=== PATIENT | female | born 1980 | race Caucasian/White ===

== ENCOUNTER 2021-07-30 08:27 | Emergency (ER) | payer OTHER, SELFPAY ==
--- NOTE | ~2021-07-30 | XR_ITS ---
EXAMINATION: XR wrist LT min 3V DATE: 07/30/2021 09:02 INDICATION: Generalized radiocarpal pain at the left wrist. TECHNIQUE: Posteroanterior, ulnar deviation, oblique, and lateral views of the left wrist were obtain ed. COMPARISON: none FINDINGS: Alignment is normal. No fracture. Bone islands at the head of the fifth metacarpal. And base of the f irst proximal phalanx. 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 Soft tissues are unrem arkable. IMPRESSION: 1. No acute osseous abnormality. Reviewed, dictated and finalized at location A. F CONSULTANT
[2021-07-30 08:34] VITALS: BP 133/83; PULSE 80; RESP 16; TEMP 36.6; O2SAT 99
--- NOTE | 2021-07-30 09:01 | ED.EXTPRO ---
HPI - Extremity Problem General Chief complaint: Extremity Problem,Nontraumatic Stated complaint: Hand/Back Pain Time Seen by Provider: 07/30/21 09:01 Source: patient Mode of arrival: ambulatory Limitations: no limitations History of Present Illness HPI Narrative: 40-year-old female presented for complaint of left wrist pain for 3 days and pain across the low back for over 3 weeks. She endorses history of RA dx 6 years and feels this is a flare. she was seen by handkerchief folder over 2 years ago and has not had any injections since. She did see her PCP last week and was given a steroid for the back pain which provided minimal relief. She also takes ibuprofen as needed, using ice and pain cream. She denies numbness, tingling, weakness to the lower extremities or to the hand. Endorses mild swelling. Denies any injury. Related Data Home Medications Medication Instructions Recorded Confirmed bupropion HCl 300 mg PO DAILY 07/30/21 07/30/21 hydrochlorothiazide 12.5 mg PO DAILY 07/30/21 07/30/21 norethindrone-e.estradiol-iron [Lo 1 tablet PO DAILY 07/30/21 07/30/21 Loestrin Fe] Allergies Allergy/AdvReac Type Severity Reaction Status Date / Time No Known Allergies Allergy Unknown Verified 07/30/21 08:46 Review of Systems Review of Systems: CONSTITUTIONAL: Denies body aches, fever, chills EYES: Denies visual changes ENT: Denies rhinorrhea, congestion CARDIOVASCULAR: Denies chest pain, palpitations, or edema. RESPIRATORY: Denies cough or dyspnea. GASTROINTESTINAL: Denies abdominal pain, nausea, vomiting, or diarrhea. SKIN: Denies rash, itching, or wounds. MUSCULOSKELETAL: Endorses back pain, joint pain NEUROLOGIC: Denies headache, numbness, tingling, or weakness. PSYCH: Denies depression or anxiety. All systems reviewed & are unremarkable except as noted in HPI and below PMFSH Comments At time of signature, I have reviewed and agree with nursing past medical, surgical, social and family history unless otherwise noted. Please see nursing chart for further information. There is no relevant family history pertinent to the presenting complaint Exam Narrative: GENERAL: Appears in pain, no distress HEAD: Normocephalic, atraumatic. EYES: PERRLA, conjunctivae clear NECK: Supple. CHEST: Speaks in full sentences. No respiratory distress. HEART: Regular rate and rhythm. Normal and equal peripheral pulses. EXTREMITIES: Left hand/wrist pain reported at the first digit MCP into U shape radiating to the left second digit, with associated point tenderness, minimal swelling no bruising. Hand with normal strength and sensation, normal range of motion with flexion/extension/rotation, but endorses pain with movement. No open wounds, skin tenting, or obvious deformity; pulse palpable and equal bilaterally, skin warm, dry, pink. Capillary refill less than 3 seconds. Pain to mid and right lower back with palpation, gait slow/steady SKIN: Warm, dry, no rash. NEURO: Alert and oriented x3. PSYCH: Normal mood and affect Course Course Emergency Course: xray reviewed with pt. Patient is aware of diagnosis, understands and agrees to treatment plan. Anticipatory guidance given. Patient agrees to follow-up as directed and is aware of reasons to seek care at the emergency department. Portions of this record may have been created with voice recognition software Level of Care: Express Care Visit Vital Signs Vital signs: Vital Signs Temperature 98 F 07/30/21 08:34 Pulse Rate 80 07/30/21 08:34 Respiratory Rate 16 07/30/21 08:34 Blood Pressure 133/83 07/30/21 08:34 Pulse Oximetry 99 07/30/21 08:34 Temperature 98 F 07/30/21 08:34 Pulse Rate 80 07/30/21 08:34 Respiratory Rate 16 07/30/21 08:34 Blood Pressure 133/83 07/30/21 08:34 Pulse Oximetry 99 07/30/21 08:34 Reviewed MDM - Extremity (Nontraumatic) MDM Narrative Medical decision making narrative: Hx RA, Xray unremarkable. DDX includesRA, osteoarth
--- NOTE | 2021-07-30 09:01 | PC.NURSE ---
PT DECLINED ICE FOR COMFORT
== END 2021-07-30 09:28 | disposition home or self-care (01) ==
PROVIDERS: Emergency Provider Nurse Practitioner Family; PCP Internal Medicine
DX: M25.532 Pain in left wrist (principal); M54.50 Low back pain, unspecified; M06.9 Rheumatoid arthritis, unspecified
CPT/HCPCS: 73110; 99213; G0463

== ENCOUNTER 2021-09-10 13:06 | Outpatient (CLI) | payer OTHER, SELFPAY ==
--- NOTE | ~2021-09-10 | US_ITS ---
EXAMINATION: US thyroid DATE: 09/10/2021 13:21 INDICATION: Thyroid nodule. TECHNIQUE: Multiple ultrasound images of the thyroid were obtained. COMPARISON: None. FINDINGS: The right thyroid lobe measures 4.9 x 1.2 x 1.1 cm. The left thyroid lobe measures 3.8 x 1.1 x 1.2 c m. There is normal echotexture and echogenicity throughout the thyroid gland. No discrete nodules id entified. Normal vascular flow is present. IMPRESSION: 1. Normal thyroid. Reviewed, dictated and finalized at location A. IMPRESSION: 1. Normal thyroid.
== END 2021-09-10 13:07 ==
PROVIDERS: Visit Provider Nurse Practitioner Family
DX: E04.1 Nontoxic single thyroid nodule (principal)
CPT/HCPCS: 76536

== ENCOUNTER 2021-09-30 13:56 | Outpatient (CLI) | payer OTHER, SELFPAY ==
--- NOTE | ~2021-09-30 | CT_ITS ---
EXAMINATION: CT soft tissue neck w con DATE: 09/30/2021 14:24 INDICATION: Neck lump. TECHNIQUE: Computed tomography (CT) of the neck was performed with 75 mL Omnipaque-350 intravenous co ntrast. Automated exposure control and iterative reconstruction technique were employed. The dose-mar gth product was 557.10 mGy-cm. COMPARISON: None FINDINGS: There is a skin marker superficial to the thyroid cartilage. There is no abnormal mass in t his area. There are no pathologically enlarged lymph nodes. The thyroid is normal. The cervical carot id arteries are normal. The paranasal sinuses are clear. The mastoid air cells are normal. There is m ild cervical spondylosis. IMPRESSION: 1. No abnormal neck mass or lymphadenopathy. Reviewed, dictated and finalized at location A.
== END 2021-09-30 13:57 | disposition home or self-care (01) ==
PROVIDERS: PCP Internal Medicine; Visit Provider Internal Medicine
DX: R22.1 Localized swelling, mass and lump, neck (principal); M47.812 Spondylosis without myelopathy or radiculopathy, cervical region
CPT/HCPCS: 70491; Q9967

== ENCOUNTER 2024-02-03 17:48 | Emergency (ER) | payer OTHER, SELFPAY ==
[2024-02-03 17:59] VITALS: BP 136/85; PULSE 81; RESP 16; TEMP 36.6; O2SAT 100
--- NOTE | 2024-02-03 18:09 | ED.GENADULT ---
HPI - General Adult General Chief complaint: Extremity Injury, Lower Stated complaint: Left Foot Injury Time Seen by Provider: 02/03/24 18:09 Source: patient, RN notes reviewed and old records reviewed Mode of arrival: ambulatory Limitations: no limitations History of Present Illness HPI narrative: 43-year-old female to Express Care with complaint of left medial ankle pain radiating to foot and toes for 3 weeks. Patient states the pain has become acutely worse over the past 24 hours. Patient endorses history of RA. Patient states that she stands on her feet all day for work. Patient states that she last saw her PCP approximately 3 months ago and that she saw her literary writer approximately 3 years ago. Patient denies any injury to left ankle or foot; Denies RA flare up to left ankle or foot in the past. Patient has attempted to treat with ice, ibuprofen, Efren wrap with little relief. Patient currently rating pain at 7/10 when standing. Patient is sitting comfortably in exam room. Patient in no acute distress. Patient requesting prescription for steroids. Related Data Home Medications Medication Instructions Recorded Confirmed bupropion HCl 300 mg 24 hr tablet, 300 mg PO DAILY 07/30/21 02/03/24 extended release hydrochlorothiazide 12.5 mg capsule 12.5 mg PO DAILY 07/30/21 02/03/24 norethindrone 1 mg-ethinyl 1 tablet PO DAILY 07/30/21 02/03/24 estradiol 10 mcg (24)-iron 10 mcg(2) tablet (Lo Loestrin Fe) Allergies Allergy/AdvReac Type Severity Reaction Status Date / Time No Known Allergies Allergy Unknown Verified 07/30/21 08:46 Review of Systems Review of Systems: All systems reviewed & are unremarkable except as noted in HPI and below Constitutional: Constitutional: Reports no additional constitutional complaints Eyes: Eyes: Reports no additional eye complaints ENT: Reports system reviewed and no additional complaints, except as documented Cardiovascular: Cardiovascular: Reports no additional cardiovascular complaints, Denies chest pain and Denies dyspnea Respiratory: Respiratory: Reports no additional respiratory complaints, Denies cough and Denies dyspnea Musculoskeletal: Musculoskeletal: Reports as per HPI, Reports arthralgias ( Left medial ankle), Denies joint swelling and Denies limited range of motion Neurologic: Reports system reviewed and no additional complaints, except as documented Psychiatric: Psychiatric: Reports no additional psychiatric complaints PMFSH Comments At the time of my signature, I reviewed and agree with the nursing past medical, surgical, social, and family history. There is no relevant family history pertinent to the patient complaint. Exam Const: General: cooperative, healthy appearing, comfortable, no acute distress, alert, well groomed, well nourished and obese Nutritional Appearance: well nourished Orientation/consciousness: patient oriented x3 Limitations: no limitations HENMT: Head: normal to inspection Ears: external ears normal Face/Nose/Sinus: Normal external nose present, Normal nares present, normal facial exam, No erythema and No edema Face and sinus: normal facial exam, no erythema and no edema Mouth: Yes Normal oral and palatal mucosa present Eyes: General: appearance normal, both eyes and all related structures Neck: Neck: normal visual inspection, full ROM and no meningeal signs Lymphatic: no lymphadenopathy noted and no lymphedema noted Chest: Chest palpation & inspection: normal inspection of the chest Resp: Effort & Inspection: normal respiratory effort and able to speak in complete sentences Auscultation: clear to auscultation bilaterally Cardio: Jugular venous distension: no JVD Rate: regular rate Rhythm: regular rhythm Back/Spine/Pelvis: Cervical Spine: cervical ROM normal Skin: General skin exam: normal color, no rashes or lesions noted and turgor normal Neuro: General: patient oriented x3, gait normal, moves all extremities
== END 2024-02-03 18:56 | disposition home or self-care (01) ==
PROVIDERS: Emergency Provider Nurse Practitioner Family; PCP Internal Medicine
DX: M25.572 Pain in left ankle and joints of left foot (principal)
CPT/HCPCS: 99213; G0463